=== PATIENT | female | born 1980 | race Caucasian/White ===

== ENCOUNTER 2017-02-14 17:06 | Emergency (ER) | payer OTHER, BC ==
[~2017-02-14] VITALS: Ht 177.8 cm; Wt 101.0 kg
[~2017-02-14 17:06] MED LIST: AMT10 PO; ZLF/100 PO
[2017-02-14 17:10] VITALS: TEMP 36.8; Ht 177.8 cm; Wt 101.0 kg
--- NOTE | 2017-02-14 17:57 | EMERGENCY ROOM VISIT NOTE ---
History Report prepared by Elizabeth: Dejan Smith Under the Supervision of: Dr. Dae Maki M.D. First contact with patient: 17:46 Chief Complaint: BACK PAIN Stated Complaint: BACK HURTS History of Present Illness The patient is a 36 year old female who presents to the Emergency Room with complaints of persistent back pain beginning a few weeks ago. She notes this pain has been ongoing for the past 3 weeks and that it worsened today while she was at work. She admits to still having normal function of her legs and toes, but reports that the pain radiates down her right leg. The patient admits to having some urinary burning and incontinence for the past 2 days, and also some right sided abdominal pain. She denies any fever or vomiting. She admits to a history of kidney stones, and notes she broke her tailbone last year. Her last period was 3 weeks ago. Source of History: patient Onset: 3 weeks ago Position: back Quality: other (back pain) Timing: other (persistent) Associated Symptoms: + abdominal pain, + urinary symptoms, No fevers, No vomiting Note: Patient adds having leg pain ., Review of Systems See HPI for pertinent positives & negatives. A total of 10 systems reviewed and were otherwise negative. Past Medical & Surgical Medical Problems: (1) Factor V deficiency Family History Cancer Diabetes mellitus Heart disease Hypertension Social History Smoking Status: Never Smoker Alcohol Use: none Drug Use: none Marital Status: Housing Status: lives with family Occupation Status: employed Current/Historical Medications Scheduled Amitriptyline HCl (Amitriptyline HCl), 10 MG PO QPM Methylprednisolone (Medrol Dosepak), 1 PKT PO UD Sertraline HCl (Sertraline HCl), 100 MG PO QPM Allergies Coded Allergies: Amoxicillin (Verified Allergy, Intermediate, RASH, 02/14/17) Erythromycin (Verified Allergy, Mild, RASH, 02/14/17) Penicillins (Verified Allergy, Unknown, 02/14/17) Sulfa Drugs (Verified Allergy, Unknown, 02/14/17) Physical Exam Vital Signs Date Time Temp Pulse Resp B/P Pulse Ox O2 Delivery O2 Flow Rate FiO2 02/14/17 19:06 75 18 110/71 97 02/14/17 17:10 36.8 83 16 123/83 96 Room Air Physical Exam GENERAL: Patient is well appearing and in minimal distress. HEENT: No acute trauma, normocephalic atraumatic, mucous membranes moist, no nasal congestion, no scleral icterus. NECK: No stridor, no adenopathy, no meningismus, trachea is midline. LUNGS: No dyspnea. Clear to auscultation and equal bilaterally. No wheeze, no rhonchi. HEART: Regular rate and rhythm. No murmurs, rubs, gallops appreciated. ABDOMEN: Soft, nontender, bowel sounds positive, no masses appreciated, no peritonitis. BACK: No midline tenderness, no CVA tenderness EXTREMITIES: Sitting on leg with no distress. Easily able to extend without any difficulty. NEUROLOGIC: Alert and oriented, no acute motor or sensory deficits, no focal weakness, cranial nerves grossly intact. SKIN: No rash, no jaundice, no diaphoresis. Medical Decision & Procedures ER Provider Diagnostic Interpretation: Radiology results and stated below per my review and radiologist interpretation: LUMBAR SPINE 5 VIEWS FINDINGS: There is no fracture. No subluxation. The sacrum is intact. Mild degenerative changes within the bilateral sacroiliac joints. Mild disc space narrowing at L5-S1. IMPRESSION: 1. No fractures within the lumbar spine. 2. Mild degenerative disc disease at L5-S1. 3. Mild bilateral sacroiliac joint osteoarthritis. Electronically signed by: Jim Gross M.D. 02/14/2017 6:59 PM Dictated Date/Time: 02/14/2017 6:56 PM Laboratory Results Test 02/14/17 00:00 Urine Color YELLOW Urine Appearance CLOUDY (CLEAR) Urine pH 5.0 (4.5-7.5) Urine Specific [place] 1.031 (1.000-1.030) Urine Protein NEG (NEG) Urine Glucose (UA) NEG (NEG) Urine Ketones NEG (NEG) Urine Occult Blood NEG (NEG) Urine Nitrite NEG (NEG) Urine Bilirubin NEG (NEG) Urine Urobilinogen NEG (NEG) Urine Leukocyte Esterase TRACE (NEG) Urine WBC (Auto) 5-10 /hpf (0-5) Urine RBC (Auto) 0-4 /hpf (0-4) Urine Hyaline Casts (Auto) 5-10 /lpf (0-5) Urine Epithelial Cells (Auto) >30 /lpf (0-5) Urine Bacteria (Auto) NEG (NEG) Urine Crystals CALCIUM OXALATE (NONE Urine Test NEG (NEG) Laboratory results as reviewed by me. Medications Administered Medications (Trade) Dose Ordered Sig/Serge Route Start Time Stop Time Status Last Admin Dose Admin Prednisone (PredniSONE TAB) 60 mg NOW STAT PO 02/14/17 19:12 02/14/17 19:13 DC 02/14/17 19:21 60 MG ED Course 1748: The patient was evaluated in room A2. A complete history and physical exam was performed. 1909: I reassessed the patient and she is feeling good. She is comfortable with steroids and pain medications. 1911: Ordered Prednisone 60 mg PO. 1914: Ordered Oxycodone HCl 1 homepack PO. 1919: Reevaluated the patient. Discussed results and discharge instructions: She verbalized understanding and agreement. The patient is ready for discharge. Medical Decision Differential: Musculoskeletal, Disc Herniation, Fracture, Cord Compression, Discitis, Infectious, Aortic Pathology, Renal Colic, UTI/Pyelonephritis, Acute Exacerbation of Chronic Pain, Sciatica, Cauda Equina, amongst other pathologies entertained. 36 right old female with right lower back pain radiating down right leg. Questionable UTI symptoms but UA clear. Abdomen is without peritonitis nor surgical findings. No evidence of kidney stone. Lumbar imaging with some arthritic changes. Stable and looks well. Steroids and pain meds. Discussed follow up with PCP, RTED if worsening or other concerns. Impression Primary Impression: Acute right-sided back pain with sciatica Scribe Attestation The scribe's documentation has been prepared under my direction and personally reviewed by me in its entirety. I confirm that the note above accurately reflects all work, treatment, procedures, and medical decision making performed by me. Departure Information Dispostion Home / Self-Care Prescriptions Methylprednisolone (MEDROL DOSEPAK) 4 Mg Richard 1 PKT PO UD for 6 Days, #1 PKT Prov: Dae Maki M.D. 02/14/17 Referrals Princess Briones (PCP) Patient Instructions ED Sciatica, My [facility] Additional Instructions You have received a narcotic pain medication. These medications may cause drowsiness and should not be used with other sedative medications. Do not drive , drink alcohol, perform dangerous activities, nor make important decisions after taking these medications. termite renewal inspector use or inappropriate use may lead to addiction.
[2017-02-14 18:39] LABS: URINE APPEARANCE CLOUDY (CLEAR); URINE BILIRUBIN NEG (NEG); URINE COLOR YELLOW; URINE EPITHELIAL CELL AUTO >30 /lpf (0-5); URINE NITRITE NEG (NEG); URINE SPECIFIC GRAVITY 1.031 (1.000-1.030); UROBILINOGEN NEG (NEG); ZZUR CULT IF INDIC CLEAN CATCH NO
[2017-02-14 18:40] LABS: REVIEW REQ? YES
[2017-02-14 18:41] LABS: MANUAL MICROSCOPIC REQUIRED? NO
--- NOTE | 2017-02-14 19:02 | DIAGNOSTIC IMAGING REPORT ---
LUMBAR SPINE 5 VIEWS HISTORY: low back pain with right leg sciatica COMPARISON: None. FINDINGS: There is no fracture. No subluxation. The sacrum is intact. Mild degenerative changes within the bilateral sacroiliac joints. Mild disc space narrowing at L5-S1. IMPRESSION: 1. No fractures within the lumbar spine. 2. Mild degenerative disc disease at L5-S1. 3. Mild bilateral sacroiliac joint osteoarthritis. Electronically signed by: Jim Gross M.D. 02/14/2017 6:59 PM Dictated Date/Time: 02/14/2017 6:56 PM
[2017-02-14 19:06] VITALS: BP 110/71; PULSE 75; O2SAT 97
[2017-02-14] MEDS ORDERED: METH4PAK PO (19:14)
[2017-02-14] MEDS ORDERED: OXYCODONE IR HOME PACK PO ONE (19:15)
== END 2017-02-14 19:24 | disposition home or self-care (01) ==
LOC: C.EDB 17:07 → C.EDA 19:24
DX: M54.41 Lumbago with sciatica, right side (principal)

== ENCOUNTER 2017-03-04 09:08 | Emergency (ER) | payer OTHER, BC ==
[~2017-03-04] VITALS: Ht 175.3 cm; Wt 100.6 kg
[2017-03-04 09:19] VITALS: PULSE 85; TEMP 37.1; O2SAT 95; Ht 175.3 cm; Wt 100.6 kg
[2017-03-04] MEDS ORDERED: PRED50TA PO (10:05)
[2017-03-04] MEDS ORDERED: OXYC1TAB3 PO (10:05)
--- NOTE | 2017-03-04 10:20 | DIAGNOSTIC IMAGING REPORT ---
L-SPINE MIN 4 VIEWS ROUTINE, SACRUM COCCYX MIN 2 VIEWS CLINICAL HISTORY: low back pain COMPARISON STUDY: Lumbar spine 02/14/2017. Pelvis CT 05/03/2016. FINDINGS: There are few punctate left renal calculi. No fracture or subluxation within the lumbar spine. Mild to moderate disc space narrowing L5-S1, unchanged. No acute fractures within the sacrum. Mild sclerosis within the bilateral SI joints with a few small areas of cystic change within the right SI joint. The presacral soft tissues are intact. The coccyx is well aligned. IMPRESSION: 1. No acute fractures identified within the lumbar spine, sacrum, or coccyx. 2. No change in the mild sclerosis within the bilateral SI joints. This could represent osteoarthritis or a sacroiliitis. 3. Left-sided nephrolithiasis. Electronically signed by: Jim Gross M.D. 03/04/2017 10:19 AM Dictated Date/Time: 03/04/2017 10:15 AM
[2017-03-04 10:44] VITALS: BP 110/67
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
== END 2017-03-04 10:46 | disposition home or self-care (01) ==
LOC: C.EDB 09:09 → C.EDA 10:46
DX: M54.5 Low back pain (principal); N20.0 Calculus of kidney; D68.2 Hereditary deficiency of other clotting factors; Z87.81 Personal history of (healed) traumatic fracture; Z83.3 Family history of diabetes mellitus; Z82.49 Family history of ischemic heart disease and other diseases of the circulatory system

== ENCOUNTER → 2017-09-09 | Outpatient (CLI) | payer BC, OTHER ==
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
== END | disposition home or self-care (01) ==
LOC: C.RAD1850 13:17
PROVIDERS: ATTEND Nurse Practitioner Adult Health
DX: R07.81 Pleurodynia (principal)

== ENCOUNTER → 2017-10-04 | Outpatient (CLI) | payer OTHER ==
--- NOTE | 2017-10-04 10:07 | DIAGNOSTIC IMAGING REPORT ---
L-SPINE MIN 4 VIEWS ROUTINE HISTORY: Pain LOW BACK PAIN COMPARISON: 03/04/2017 FINDINGS: There is no fracture. No subluxation. Disc spaces are preserved. Unchanging left renal nephrocalcinosis. Mild degenerative change mid to inferior sacroiliac joints. IMPRESSION: 1. No acute process. 2. Stable left nephrocalcinosis. 3. Unchanging moderate degenerative change mid to inferior sacroiliac joints. The above report was generated using voice recognition software. It may contain grammatical, syntax or spelling errors. Electronically signed by: Alexandr Dias M.D. 10/04/2017 10:06 AM Dictated Date/Time: 10/04/2017 10:04 AM
== END | disposition home or self-care (01) ==
LOC: C.RAD1850 09:50
PROVIDERS: ATTEND Nurse Practitioner Adult Health
DX: M54.5 Low back pain (principal)

== ENCOUNTER → 2018-01-26 | Outpatient (CLI) | payer OTHER ==
--- NOTE | 2018-01-26 14:38 | DIAGNOSTIC IMAGING REPORT ---
R KNEE 1 OR 2 VIEWS ROUTINE CLINICAL HISTORY: Right knee pain. COMPARISON: None FINDINGS: Alignment of the right knee is anatomic. A few sclerotic lesions within the distal right femur and proximal right tibia suggest bone islands. There is no fracture or suspicious lesion. No joint effusion is visualized. Joint spaces are preserved. IMPRESSION: No significant abnormality of the right knee. Electronically signed by: Skinny Edwards M.D. 01/26/2018 2:37 PM Dictated Date/Time: 01/26/2018 2:36 PM
== END | disposition home or self-care (01) ==
LOC: C.RAD1850 14:25
PROVIDERS: ATTEND Nurse Practitioner
DX: M25.561 Pain in right knee (principal)

== ENCOUNTER 2020-07-05 08:40 | Observation (INO) ==
--- NOTE | 2020-06-19 14:22 | PAT Medication Instructions ---
Medication Instructions Date of Service June 19, 2020 Home Medications amitriptyline 20 mg PO HS sertraline 100 mg PO HS acetaminophen [Tylenol Extra Strength] 1,000 mg PO Q6H PRN Take morning of surgery With a small sip of water, OTHERWISE NOTHING TO EAT OR DRINK AFTER MIDNIGHT: acetaminophen [Tylenol Extra Strength] 1,000 mg PO Q6H PRN (okay to take up to 4 hours prior to surgery if needed) Take evening before surgery amitriptyline 20 mg PO HS sertraline 100 mg PO HS acetaminophen [Tylenol Extra Strength] 1,000 mg PO Q6H PRN (if needed) Other Notes If you have any questions please call us at [phone] or [phone] or [phone] or [phone]
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
[2020-06-21 14:03] LABS: Basophils # (auto) 0.01 K/uL (0-0.2); Basophils % (auto) 0.2 %; Eosinophils # (auto) 0.06 K/uL (0-0.5); Eosinophils % (auto) 1.4 %; Hematocrit (blood only) 42.6 % (37-47); Hemoglobin 14.1 g/dL (12.0-16.0); Immature Granulocytes # (auto) 0.01 K/uL (0.00-0.02); Immature Granulocytes % (auto) 0.2 %; Lymphocytes % (auto) 32.3 %; Mean Corpuscular Hemoglobin 29.3 pg (25-34); Mean Corpuscular Hgb Conc 33.1 g/dL (32-36); Mean Corpuscular Volume 88.4 fL (80-100); Mean Platelet Volume 11.8 fL (7.4-10.4); Monocytes # (auto) 0.47 K/uL (0.11-0.59); Monocytes % (auto) 10.8 %; Neutrophils # (auto) 2.39 K/uL (1.4-6.5); Neutrophils % (auto) 55.1 %; Platelet Count 159 K/uL (130-400); RDW Coefficient of Variation 13.3 % (11.5-14.5); RDW Standard Deviation 43.6 fL (36.4-46.3); Red Blood Count 4.82 M/uL (4.2-5.4); White Blood Count 4.34 K/uL (4.8-10.8)
--- NOTE | 2020-06-21 14:06 | Electrocardiogram Report ---
Test Reason : Blood Pressure : / mmHG Vent. Rate : 090 BPM Atrial Rate : 090 BPM P-R Int : 164 ms QRS Dur : 092 ms QT Int : 352 ms P-R-T Axes : 069 066 -42 degrees QTc Int : 430 ms Normal sinus rhythm Abnormal ECG When compared with ECG of 03-MAY-2016 19:16, No significant change was found Confirmed by Luis Carmichael ([id number]) on 06/21/2020 2:05:46 PM Referred By: Cristina Carreno Confirmed By:Luis Carmichael
[2020-06-21 14:35] LABS: Creatinine Clr Calc Pharmacy 114.7 ml/min; Est GFR (African American) 97.3; Est GFR (Non-African American) 83.9; Potassium 3.6 mmol/L (3.5-5.1)
[~2020-07-05 08:40] MED LIST changes: -AMT10 PO; +CLINDAMYCIN 600 MG/54 ML BAG IV SCH; +GENTAMICIN SULFATE 160 MG in DEXTROSE 5% 100 ML IV SCH; +LACTATED RINGER'S 1,000 ML IV SCH; +SODIUM CHLORIDE 0.9% 1000ML 1,000 ML IV SCH; -ZLF/100 PO
[2020-07-05] MEDS ORDERED: GLYCOPYRROLATE 0.2 MG/ML VIAL ONE (09:43)
[2020-07-05] MEDS ORDERED: NEOSTIGMINE METHYLSULFATE 5 MG/5 ML SYR ONE (09:43)
[2020-07-05] MEDS ORDERED: PROPOFOL IV EMULSION 10 MG/ML 20 ML VIAL IV ONE (09:43)
[2020-07-05] MEDS ORDERED: LIDOCAINE HCL 2% 2 ML VIAL/AMP(20MG/ML) INFIL ONE (09:43)
[2020-07-05] MEDS ORDERED: ROCURONIUM BROMIDE 10 MG/ML 5 ML VIAL IV ONE (09:43)
[2020-07-05] MEDS ORDERED: fentaNYL citrate 100 MCG/2 ML VIAL ONE ×2 (09:44→11:17)
[2020-07-05] MEDS ORDERED: MIDAZOLAM HCL 1 MG/ML 2ML VIAL ONE (09:44)
[2020-07-05] MEDS ORDERED: OXYCODONE/ACETAMINOPHEN 5mg/325mg TAB PO PRN (10:13)
[2020-07-05] MEDS ORDERED: ONDANSETRON INJ 2 MG/ML 2 ML VIAL IV PRN ×3 (10:13→14:27)
[2020-07-05] MEDS ORDERED: KETOROLAC 30 MG/ML VIAL IV PRN (10:13)
[2020-07-05] MEDS ORDERED: METOCLOPRAMIDE HCL INJ 5 MG/ML 2 ML VIAL IV PRN (10:13)
--- NOTE | 2020-07-05 10:15 | History & Physical Bridge Note ---
Date of Service July 05, 2020 History & Physical Bridge Note I have examined the patient, reviewed the History & Physical and in the interval since the performance of the History & Physical I have noted the following changes of clinical significance: no changes noted
[2020-07-05] MEDS ORDERED: METHYLENE BLUE 0.5% 10 ML VIAL ONE (10:23)
[2020-07-05] MEDS ORDERED: BUPIVACAINE 0.5 % 5 MG/1 ML MPF 30ML VIAL ONE (10:23)
[2020-07-05] MEDS ORDERED: ATROPINE SULFATE 0.1 MG/ML 10ML SYR IV PRN (11:46)
[2020-07-05] MEDS ORDERED: ePHEDrine sulfate 50 MG/ML AMP IV PRN (11:46)
[2020-07-05] MEDS ORDERED: HYDROmorphone INJ 1 MG/ML SYRINGE IV PRN ×2 (11:46→15:08)
--- NOTE | 2020-07-05 12:31 | Post Operative Brief Note ---
Immediate Post Op Note v1 Date of Surgery July 05, 2020 Pre & Post Diagnosis Operation Date: 07/05/20 10:20 Pre-Op Diagnosis: Heavy Menstral Bleeding Post-Op Diagnosis: Heavy Menstral Bleeding I identified the patient and participated in the time-out.: Yes Procedure Operation Date: 07/05/20 10:20 Actual Procedures p Total Laparoscopic Hysterectomy, Bilateral Salpingectomy, Cystoscopy - Cristina Carreno Surgeon Cristina Carreno Service Line Bus Cleaner JESS Rivers-C Estimated Blood Loss 100 Findings Consistent with Post-Op Diagnosis Drains Carrasco Catheter (inserted by Valorie MERCADO without difficulty at start of case, draining clear yellow urine.)
--- NOTE | 2020-07-05 12:43 | Operative Report ---
Post Operative Report Pre & Post Diagnosis Operation Date: 07/05/20 10:20 Pre-Op Diagnosis: Heavy Menstral Bleeding Post-Op Diagnosis: Heavy Menstral Bleeding I identified the patient and participated in the time-out.: Yes Procedure Operation Date: 07/05/20 10:20 Actual Procedures p Total Laparoscopic Hysterectomy, Bilateral Salpingectomy, Cystoscopy - Cristina Carreno Surgeon Cristina Carreno Livestock Caretaker Valorie Ackerman PA-C Estimated Blood Loss 100 Findings See Below 1. 9 cm anteverted uterus 2. Normal appearing ovaries bilaterally 3. Right fallopian tube appeared truncated 4. Left fallopian tube edematous 5. Anterior and posterior cul-de-sac were free of disease or adhesions 6. Normal appearing liver edge 7. Appendix not visualized 8. On cystoscopy, normal appearing bladder dome which was free of suture or lesions 9. Brisk bilateral efflux of urine by ureteral orifices Fluids See anesthesia Report Specimens Uterus, cervix, and bilateral fallopian tubes (right tube is detached from uterine specimen) Drains Schmidt catheter: 100 ml Anesthesia Type General Complications none Indications 39 yo with heavy menstrual bleeding desiring definitive surgical management. Description of Procedure Under GA in the dorsal lithotomy position, the patient was prepped and draped in the usual sterile fashion. Beginning at the vagina, a schmidt catheter was inserted under sterile conditions and left in situ for the remainder of the case. A weighted speculum was then placed in the vagina and with the help of a right angle retractor the cervix was visualized and grasped anteriorly with a single tooth tenaculum. The uterus was sounded to 9 cm with a uterine sound. The cervical os was dilated. An AdvincBilibot uterine manipulator with a metal cup was inserted. The weighted speculum was then removed. Attention was then turned to the abdomen. 0.5% marcaine solution was used for infiltration of all port sites. Beginning in the subumbilical area, the skin was first infiltrated with ~ 2 cc of the marcaine solution, then a 5 mm incision was made through the skin with a #11 blade. Direct entry with a 5 mm trocar, sleeve, and laparoscope was made into the peritoneal cavity. The opening pressure was < 8 mmHg. The peritoneal cavity was insufflated with CO2 gas to a maximum pressure of 20 mmHg. Examination of the peritoneal cavity revealed no signs of injury from entry and normal anatomical structures. The patient was then placed in steep Trendelenburg and three more 5 mm trocars were placed, one on the right and two on the left, in the standard technique, taking care to avoid the epigastric vessels. All trocars were placed under direct visualization with no inadvertent damage to underlying structures. The uterus was upheld from below and revealed a normal uterus, edematous left fallopian tube, truncated right fallopian tube, and normal ovaries. Beginning on the left side and working distally along the length of the fallopian tube, the mesosalpinx was exposed by lifting the tube up towards the anterior abdominal wall. The mesosalpinx was then sequentially, clamped, ligated, and cut using the ROCK Harmonic working alongside the length of the tube and towards the cornua. Once the level of the cornua was reached the tube was ligated and cut. Attention was then turned to the other side. The same process was repeated on the right, sequentially clamping, ligating, and cutting the mesosalpinx being sure to not injure the adjacent ovarian tissue or other surrounding structures. The round ligament was then ligated and cut. Following this, the anterior leaf of the broad ligament was then taken down on the right side, dissecting down towards the peritoneal reflection at the base of the bladder and adjacent to the cervix. The same process was then repeated on the left side such that both sides met and the anterior leaflet had been appropriately skeletonized. Once the bladder was appropriately dissected free from the lower anterior uterine segment and the tissues skeletonized, the uterine arteries were bilaterally clamped and ligated. Pedicles were checked and hemostatic. At the level of the metal cup of the uterine manipulator, the vaginal vault was incised circumferentially with the ROCK Harmonic. The uterus, cervix, and fallopian tubes were delivered through the vagina and sent to pathology. A vaginal occluder was then placed into the vagina to form a pneumatic seal and all the pedicles as well as the cuff edges were examined. The vaginal vault was then closed with a V-Loc barbed stitch being sure to avoid the bladder lateral pedicles. Following vault closure, an inspection of all areas was made to ensure hemostasis. The pelvis was irrigated and suctioned. Tisseal was then placed along the adnexal regions and the vaginal cuff. Hemostasis was again appreciated. All ports were removed under direct visualization and hemostasis noted. All the incision sites were then closed with 4-0 monocryl sutures in a subcuticular fashion and dermabond. Attention was returned to the vagina and the vaginal occluder and schmidt catheter was removed without difficulty. Cystoscopy was then performed. Normal bladder dome was visualized which was free of suture of lesions. There was brisk bilateral efflux of urine by the ureteral orifices. The bladder was drained and the cystocope was removed without incident. At the end of the procedure, all sponges, instruments, and sharps were counted and correct. Estimated blood loss was 100 ml. The patient was taken to recovery in stable condition. My Livestock Caretaker was necessary throughout the procedure for uterine manipulation, retraction, handling of the laparoscope and laparoscopic instruments to ensure adequate visualization, gentle tissue manipulation, and hemostasis. I attest to the content of the Intraoperative Record and any orders documented therein. Any exceptions are noted below.
[2020-07-05] MEDS: fentaNYL citrate 100 MCG/2 ML VIAL IV PRN ×2 (13:00→13:05)
[2020-07-05] MEDS ORDERED: DEXAMETHASONE SOD INJ 4 MG/ML VIAL ONE (13:19)
[2020-07-05] MEDS ORDERED: ONDANSETRON INJ 2 MG/ML 2 ML VIAL ONE (13:19)
[2020-07-05] MEDS ORDERED: KETOROLAC 30 MG/ML VIAL ONE (13:34)
[2020-07-05] MEDS ORDERED: KETOROLAC TROMETHAMINE 15 MG/ML VIAL IV ONE (13:37)
--- NOTE | 2020-07-05 13:39 | Anesthesiology Progress Note ---
Date of Service July 05, 2020 Anesthesia Post Procedure Vital Signs Vital Signs: Temp Pulse Pulse Resp BP BP Pulse Ox 07/05/20 13:35 91 H 14 122/73 97 07/05/20 13:25 85 13 125/73 98 07/05/20 13:15 36.1 C L 88 16 122/68 93 07/05/20 13:05 83 14 124/73 96 07/05/20 12:55 83 18 127/74 97 07/05/20 12:45 36.1 C L 89 16 132/75 100 07/05/20 08:57 36.7 C 80 16 126/74 97 Pain Intensity Abdomen: Pain Intensity: 3 Transfer of Care Handoff Completed per policy Notes Mental Status: alert / awake / arousable and participated in evaluation Patient Amnestic to Procedure: Yes Nausea / Vomiting: adequately controlled Pain: adequately controlled Airway Patency, RR, SpO2: stable & adequate BP & HR: stable & adequate Hydration State: stable & adequate Anesthetic Complications: no major complications apparent and Pt Satisfied with anesthetic care
[2020-07-05] MEDS ORDERED: PROMETHAZINE HCL 25 MG in SODIUM CHLORIDE 0.9% 50 ML IV PRN (14:27)
[2020-07-05] MEDS ORDERED: ACETAMINOPHEN 500 MG TAB PO PRN (14:44)
[2020-07-05] MEDS: SIMETHICONE 80 MG CHEW PO SCH ×2 (17:33→23:51)
[2020-07-05] MEDS: OXYCODONE HCL IR 5 MG TAB (IMMEDIATE RELEASE) PO PRN (17:33)
[2020-07-05] MEDS: DOCUSATE SODIUM 100 MG CAP PO SCH (20:12)
[2020-07-05] MEDS: KETOROLAC 30 MG/ML VIAL IV SCH (20:13)
[2020-07-05] MEDS ORDERED: SERTRALINE HCL 100 MG TABLET PO SCH (21:00)
[2020-07-05] MEDS ORDERED: AMITRIPTYLINE HCL 10 MG TAB PO SCH (21:00)
[2020-07-06] MEDS: KETOROLAC 30 MG/ML VIAL IV SCH ×2 (02:24→08:23)
[2020-07-06] MEDS: SIMETHICONE 80 MG CHEW PO SCH (06:38)
--- NOTE | 2020-07-06 07:31 | Gynecologic Progress Note ---
Date of Service July 06, 2020 Assessment & Plan (1) S/P laparoscopic hysterectomy: POD#1. s/p TLH/BS/Cystoscopy. Patient meeting all discharge criteria. Discharge home with instructions. Post-operative medications previously prescribed. Present on Admission?: No Admission and Anticipated Discharge Date Admission Date: July 05, 2020 Subjective POD#1. s/p TLH/BS/Cystoscopy. Patient with no complaints overnight. Patient reports pain is controlled with oral medications. Tolerating regular diet. Denies flatus. Denies N/V, fevers, chills, SOB or CP. Review of Systems Review of Systems: All systems reviewed & are unremarkable except as noted in Subjective Physical Exam Constitutional: WD/WN, vitals as above Respiratory: normal respiratory effort, lungs clear to auscultation Cardiovascular: RRR, no murmur, no edema Gastrointestinal (Abdomen): Inspection/Auscultation: normal bowel sounds Percussion/Palpation: abdomen soft Appropriately tender to palpation. Incisions: C/D/I. No erythema or edema Results & Data ([facility]) Vital Signs (Past 12 Hours) Vital Signs Temp Pulse Resp BP Pulse Ox 07/05/20 23:50 37.0 C 80 16 105/65 94 07/05/20 19:55 37.1 C 90 17 120/69 95
--- NOTE | 2020-07-06 07:38 | Discharge Summary ---
Date of Service July 06, 2020 Admission HPI Per Admitting Provider 39 yo with heavy menstrual bleeding and endometriosis. Monthly menses, lasting 7 days with 4 days of HMB. Patient using maxi-pads and changing every hour on the heavy days. Denies intermenstrual bleeding. Patient also with biopsy proven endometriosis and continued pelvic pain. TVUS in Oct 2018 revealed a dermoid cyst (which was previously surgically removed). Endometrial biopsy: benign proliferative endometrium (Sep 2019) Pap smear: NILM/-HPV (Sep 2019) Admission Exam (Per Admitting) Constitutional WD/WN, vitals as above Respiratory normal respiratory effort, lungs clear to auscultation Cardiovascular RRR, no murmur, no edema Gastrointestinal (Abdomen) Inspection/Auscultation: normal bowel sounds Percussion/Palpation: abdomen soft Discharge Data Procedures Performed Operation Date: 07/05/20 10:20 Actual Procedures p Total Laparoscopic Hysterectomy, Bilateral Salpingectomy, - Cristina [place]oney[place] s Cystoscopy - [facility] MaloneyEv Hospital Course (1) S/P laparoscopic hysterectomy: POD#1. s/p TLH/BS/Cystoscopy. Patient meeting all discharge criteria. Discharge home with instructions. Post-operative medications previously prescribed. Discharge Instructions POST OPERATIVE: BOWEL FUNCTION/MEDICATIONS: 1. Constipation pain and discomfort are the most common complaints 5-7 days after surgery. Points 2-6 address the things that can help. 2. Chewing gum can help stimulate the gut and help improve digestion and motility. 3. Milk of Magnesia 1-2 times per day until return of bowel function. 4. Colace is a stool softener that helps. Taking this 2-3 times per day until bowel function returns to normal is highly recommended. 5. Dulcolax is a laxative that may be used if several days have passed without a bowel movement. Alternatively Miralax may be used daily instead. 6. Drink plenty of fluids as this will also reduce constipation. 7. Narcotic pain medications will be prescribed by your physician. They are safe to use and we encourage you to use them. If you are not allergic, ibuprofen will also be prescribed. Many patients will be able to transition off of the narcotic medications to ibuprofen by postoperative day 3. ACTIVITY RECOMMENDATIONS: 1. Get plenty of rest and listen to your body. If you are tired, take a nap. 2. You may shower, but do not take a tub bath until you see your doctor at the 2 week post operative visit. 3. Absolutely NO intercourse and nothing in the vagina until you are examined by your doctor at the 6 week visit. At that visit it will be determined when such activities can be resumed. This can range from 6-12 weeks after your surgery depending on healing time. 4. The main physical activity in the first week should be walking. By the second week you can slowly increase activity. There are no limits on walking up and down stairs. 5. Do not lift more than 5-10 lbs for 4 weeks. Remember the "one-handed rule", i.e. if you can lift something with only one hand it's likely okay. 6. Minimize newspaper distributor supervisor like vacuuming and exercising for 4 weeks. "Overdoing it" can lead to incisions not healing, pain and vaginal bleeding, so again, listen to your body. 7. Driving can be resumed when you feel able. Do not drive within 24 hours of taking a narcotic medication. EXPECTATIONS: 1. Vaginal spotting, bleeding and discharge are common after surgery. There may even be an odor to the discharge which is often related to sutures used in the vagina. If you experience heavy vaginal bleeding, call the office number day or night [phone]. 2. Bladder discomfort is common after surgery from the catheter. This usually resolves in 1-2 weeks. 3. By the end of the 3rd or 4th week you should be feeling much better. It may take up to 6 weeks for your energy levels to return to normal. 4. Narcotic medications have side effects such as: dizziness, headache, nausea and/or vomiting. If you suspect your pain medication is causing problems, call ou r office and we may be able to prescribe an alternate medication. 5. The skin incisions are often covered with a liquid bandage. This will gradually peel off over time. CALL THE OFFICE IF YOU HAVE ANY OF THE FOLLOWIN. Temperature of 101 degrees or higher. 2. Severe abdominal or pelvic pain not relieved by pain medication. 3. Persistent nausea or vomiting. 4. Increased pain with urination or difficulty urinating. 5. Bright red bleeding that soaks more than 1 pad per hour. CONTACT PHONE NUMBERS: Main Office: [phone] Avoid all tobacco products. If you need help to stop smoking, call [place]'s FREE QUITLINE at . This is a free call.
[2020-07-06] MEDS: OXYCODONE HCL IR 5 MG TAB (IMMEDIATE RELEASE) PO PRN (08:37)
[2020-07-06] MEDS: DOCUSATE SODIUM 100 MG CAP PO SCH (08:37)
== END 2020-07-06 11:55 | disposition home or self-care (01) ==
LOC: 4S2 08:40 → ASU 08:40